=== PATIENT | male | born 1965 | race Caucasian/White ===

== ENCOUNTER → 2021-11-10 12:13 | Outpatient (CLI) | payer BC, SELFPAY ==
--- NOTE | 2021-11-10 | CA_ITS ---
APPROVED REPORT Exam: Exercise Treadmill Technologist: Mala Cerrato, Ht: 5 ft 8 in Wt: 214 lbs BSA: 2.10 m2 HR: 58 bpm BP: 139/86 mmHg Rhythm: sinus liliya, otherwise normal Medical History Medical History: Hyperlipidemia Cardiac Risk Factors: Hyperlipidemia, FHX of CAD, Smoking Stress Test Details Test: Angel HR Resting HR: 70 bpm Max Heart Rate (APMHR): 164.429176 bpm Max HR Achieved: 151 bpm Target HR (85% APMHR): 139.370705 bpm % of APMHR: 92.07 Recovery HR: 123 bpm BP Resting BP: 137/89 mmHg Max BP: 186/82 mmHg Recovery BP: 184.0/89.0 mmHg ECG Resting ECG: sinus liliya, otherwise normal Clinical Exercise duration: 09:00 min Highest Stage Achieved: Exercise capacity: 10.1 METs Stress ECG Conclusion During angel protocol pt exercised total of 9 minutes, completing stage 3. No CP noted. No arrhythmias noted. Allowing for motion artifact, ST response to exercise is within normal. Normal GXT. GXT only, no imaging. Test Summary REST . . . . . . . Sitting REST . . . . . . . Standing REST 02:25 0.0 0.0 70 . 137/ 89 . . Stage 1 01:00 10.0 1.7 91 . . . . Stage 1 02:00 10.0 1.7 98 . . . . Stage 1 03:00 10.0 1.7 102 . . . . Stage 2 01:00 12.0 2.5 115 . . . . Stage 2 02:00 12.0 2.5 119 . . . . Stage 2 03:00 12.0 2.5 124 . 178/ 80 . . Stage 3 01:00 14.0 3.4 137 . . . . Stage 3 02:00 14.0 3.4 148 . 186/ 82 . . Stage 3 03:00 14.0 3.4 150 . 186/ 82 . Stop exercise at 09:00 RECOVERY 01:00 0.0 0.0 123 . . . . RECOVERY 02:00 0.0 0.0 108 . 184/ 89 . . RECOVERY 03:00 0.0 0.0 101 . 169/ 86 . . RECOVERY 04:00 0.0 0.0 92 . 169/ 86 . . RECOVERY 05:00 0.0 0.0 91 . 146/ 82 . . RECOVERY 05:18 0.0 0.0 93 . 146/ 82 . . Electronically signed by : Daniel Shah MD 11/11/2021 06:21:19
== END ==
PROVIDERS: PCP Family Medicine; Visit Provider Internal Medicine
DX: R53.83 Other fatigue (principal); Z82.49 Family history of ischemic heart disease and other diseases of the circulatory system
CPT/HCPCS: 93017